=== PATIENT | female | born 1965 ===

== ENCOUNTER 2017-03-24 17:27 | Emergency (ER) | payer BC ==
[2017-03-24] MEDS ORDERED: Oxycodone/Acetaminophen 5/325 mg Tab PO STA (18:53)
[2017-03-24 19:43] LABS: URINE BILIRUBIN NEGATIVE (NEGATIVE); URINE BLOOD NEGATIVE (NEGATIVE); URINE GLUCOSE (UA) 250 mg/dL (NEGATIVE); URINE LEUKOCYTE ESTERASE NEGATIVE Leu/uL (NEGATIVE); URINE NITRATE NEGATIVE (NEGATIVE); URINE PROTEIN NEGATIVE mg/dL (<30 mg/dL); URINE UROBILINOGEN 0.2 E.U./dL (<1 E.U./dL)
[2017-03-24 19:44] LABS: URINE APPEARANCE CLEAR (CLEAR); URINE COLOR YELLOW (YELLOW)
--- NOTE | 2017-03-24 20:37 | ED PDOC ---
Arrival/HPI - General Chief Complaint: Headache Time Seen by Provider: 03/24/17 18:51 Historian: Patient, Family - History of Present Illness Narrative History of Present Illness (Text): 52 y/o woman w/ pmhx of dm presents c/o several days left sided paralumbar/left sided si joint pain atraumatic onset during her sleep s she awoke with the pain . Denying any n/v/d/focal neurological deficit. rs : chronic polyuria. 03/24/17 20:50 Time/Duration: < week Symptom Onset: Sudden Symptom Course: Worsening Quality: Aching, Pressure Past Medical History - Provider Review Nursing Documentation Reviewed: Yes - Infectious Disease Hx of Infectious Diseases: None - Reproductive Menopause: Yes - Endocrine/Metabolic Hx Diabetes Mellitus Type 2: Yes - Psychiatric Hx Substance Use: No - Surgical History Hx Appendectomy: Yes - Anesthesia Hx Anesthesia: No Family/Social History - Physician Review Nursing Documentation Reviewed: Yes Family/Social History: No Known Family HX Smoking Status: Unknown If Ever Smoked Hx Alcohol Use: No Hx Substance Use: No Allergies/Home Meds Allergies/Adverse Reactions: Allergies No Known Allergies Allergy (Verified 03/24/17 17:37) Home Medications: Home Meds Medication Instructions Recorded Confirmed Simvastatin [Zocor] 0 mg PO DAILY 03/24/17 03/24/17 metFORMIN [glucOPHAGE] 1,000 mg PO HS 03/24/17 03/24/17 Review of Systems - Physician Review All systems were reviewed & negative as marked: Yes - Review of Systems Constitutional: Normal Eyes: Normal ENT: Normal Respiratory: Normal Cardiovascular: Normal Gastrointestinal: Normal Genitourinary Female: Normal Musculoskeletal: Normal Skin: Normal Neurological: Normal Endocrine: Normal Hemo/Lymphatic: Normal Psychiatric: Normal Physical Exam Vital Signs Reviewed: Yes Vital Signs Temp Pulse Resp BP Pulse Ox 03/24/17 20:45 97.7 F 62 18 126/69 99 03/24/17 17:32 98.1 F 74 18 140/70 100 Temperature: Afebrile Blood Pressure: Normal Pulse: Regular Respiratory Rate: Normal Appearance: Positive for: Well-Appearing, Non-Toxic, Comfortable Pain Distress: None Mental Status: Positive for: Alert and Oriented X 3 Finger Stick Blood Glucose: 178 - Systems Exam Head: Present: Atraumatic, Normocephalic Pupils: Present: PERRL Extroacular Muscles: Present: EOMI Conjunctiva: Present: Normal Mouth: Present: Moist Mucous Membranes Neck: Present: Normal Range of Motion Respiratory/Chest: Present: Clear to Auscultation, Good Air Exchange. No: Respiratory Distress, Accessory Muscle Use Cardiovascular: Present: Regular Rate and Rhythm, Normal S1, S2. No: Murmurs Abdomen: Present: Normal Bowel Sounds. No: Tenderness, Distention, Peritoneal Signs Back: Present: Midline Tenderness, Paraspinal Tenderness, Other (mild mid lumbar ttp< left sided paralumbar ttp> left sided si joint ttp ) Upper Extremity: Present: Normal Inspection. No: Cyanosis, Edema Lower Extremity: Present: Normal Inspection. No: Edema Neurological: Present: GCS=15, CN II-XII Intact, Speech Normal, Motor Func Grossly Intact, Normal Sensory Function, Normal Cerebellar Funct, Norm Deep Tendon Reflexes, Gait Normal, Other (nodeficits w/ heel/toe walking . ) Skin: Present: Warm, Dry, Normal Color. No: Rashes Psychiatric: Present: Alert, Oriented x 3, Normal Insight, Normal Concentration Medical Decision Making - Lab Interpretations Lab Results: Lab Results 03/24/17 20:16: POC Glucose (mg/dL) 178 H 03/24/17 19:29: Urine Color Yellow, Urine Appearance Clear, Urine pH 6.0, Ur Specific [place] >= 1.030, Urine Protein Negative, Urine Glucose (UA) 250 H, Urine Ketones Negative, Urine Blood Negative, Urine Nitrate Negative, Urine Bilirubin Negative, Urine Urobilinogen 0.2, Ur Leukocyte Esterase Negative - Medication Orders Current Medication Orders: Discontinued Medications Cyclobenzaprine HCl (Flexeril) 10 mg PO STAT STA Stop: 03/24/17 18:54 Last Admin: 03/24/17 19:39 Dose: 10 mg Ketorolac Tromethamine (Toradol) 30 mg IM STAT STA Stop: 03/24/17 18:53 Last Admin: 03/24/17 19:38 Dose: 30 mg MAR Pain Assessment Document 03/24/17 19:38 [email or web address] (Rec: 03/24/17 19:39 [email or web address] [employer]- OPERATOR1) Pain Reassessment Is this a pain reassessment? No Sleep Is patient sleeping during reassessment? No Presence of Pain Presence of Pain Yes Pain Scale Used Pain Scale Used Numeric Location Pain Location Body Site Back Description Description Constant Intensity of Pain at present 7 Pain Behavior Facial Grimacing Aggravating Factors Changing Position Alleviating Factors/Management Medication Techniques Alleviating Factors Medication IM Administration Charges Document 03/24/17 19:38 [email or web address] (Rec: 03/24/17 19:39 [email or web address] [facility]- [email or web address]) Injection Site MAR Injection Site Right Deltoid Charges for Administration # of IM Administrations 1 Oxycodone/Acetaminophen (Percocet 5/325 Mg Tab) 1 tab PO STAT STA Stop: 03/24/17 18:54 Last Admin: 03/24/17 19:39 Dose: 1 tab MAR Pain Assessment Document 03/24/17 19:39 [email or web address] (Rec: 03/24/17 19:39 [email or web address] [facility]- OPERATOR1) Pain Reassessment Is this a pain reassessment? No Sleep Is patient sleeping during reassessment? No Presence of Pain Presence of Pain Yes Pain Scale Used Pain Scale Used Numeric Location Pain Location Body Site Back Description Description Constant Intensity of Pain at present 7 Pain Behavior Facial Grimacing Aggravating Factors Changing Position Alleviating Factors/Management Medication Techniques Alleviating Factors Medication Disposition/Present on Arrival - Present on Arrival Any Indicators Present on Arrival: No History of DVT/PE: No History of Uncontrolled Diabetes: No Urinary Catheter: No History of Decub. Ulcer: No History Surgical Site Infection Following: None - Disposition Have Diagnosis and Disposition been Completed?: Yes Diagnosis: Lumbago, Back spasm Disposition: HOME/ ROUTINE Disposition Time: 20:54 Patient Plan: Discharge Patient Problems: Current Active Problems Problem Status Onset Back spasm Acute Lumbago Acute Condition: FAIR Discharge Instructions (ExitCare): Muscle Spasm (ED) Print Language: CITIZEN OF [place] Additional Instructions: Aplique compresos caliente despues tomando la medicina , seguido con masaje para facilitar ameliorando de [place] dolor. Tu no tiene usted evidencia de infeccion en la orina. Prescriptions: Cyclobenzaprine [Cyclobenzaprine HCl] 10 mg PO Q8 PRN #18 tab PRN Reason: Muscle Spasm Ibuprofen [Motrin Tab] 600 mg PO Q6 PRN #40 tab PRN Reason: Pain, Moderate (4-7) oxyCODONE/Acetaminophen [Percocet 5/325 mg Tab] 1 ea PO Q8 PRN #12 tab PRN Reason: Pain, Severe (8-10) Referrals: Miguel Angel Albert [Primary Care Provider] - Follow up with primary Forms: [employer] (Ivorian), WORK NOTE
[2017-03-24 20:46] VITALS: BP 126/69; PULSE 62; TEMP 97.7; O2SAT 99
[2017-03-24 21:27] VITALS: RESP 19
== END 2017-03-24 21:27 | disposition home or self-care (01) ==
LOC: ED 17:27
DX: M62.830 Muscle spasm of back (principal); M54.5 Low back pain; E11.9 Type 2 diabetes mellitus without complications
CPT/HCPCS: 81003; 82948; 96372; 99285; J1885